=== PATIENT | female | born 1950 | race Caucasian/White ===

== ENCOUNTER 2016-09-13 17:53 | Inpatient (IN) | payer MEDICARE, MEDICAID ==
[~2016-09-13] VITALS: Ht 165.1 cm; Wt 68.1 kg
[~2016-09-13 17:53] MED LIST: ALBU17AE19 IH; ALPR-324 PO; AMLO5TAB4 PO; CLIN300C97 PO; HYDR1TAB70 PO; IPRA0.2S49 IH; LEVO100T PO; MONT10TA22 PO; PRED10TA23 PO; SIMV10TA6 PO; TIOT18CA3 IH; VALS1TAB52 PO
--- NOTE | 2016-09-13 18:08 | NUR ---
BIB SELF, CC: CHEST PAIN AND SOB, WITH HX OF EMPHYSEMA. PLACED ON MONITOR. AWAITING MD ORDER.
--- NOTE | 2016-09-13 18:15 | NUR ---
MEDS GIVEN ORDERED. CALLED RT FOR BREATHING TX
--- NOTE | 2016-09-13 18:15 | NUR ---
RFA #20 IV ACCESS. BLOOD SAMPLE COLLECTED SENT TO LAB.
[2016-09-13 18:26] LABS: BASOPHILS % (AUTO) 0.4 % (0.0-2.0); EOSINOPHILS # (AUTO) 0.4 /CMM (0.0-0.7); EOSINOPHILS % (AUTO) 3.2 % (0.0-6.0); HEMATOCRIT 40 % (33-45); HEMOGLOBIN 13.6 g/dL (11.5-14.8); LYMPHOCYTES # (AUTO) 2.7 /CMM (0.8-4.8); LYMPHOCYTES % (AUTO) 23.9 % (20.0-44.0); MEAN CORPUSCULAR HEMOGLOBIN 28 PG (26.0-33.0); MEAN CORPUSCULAR HGB CONC 34 g/dl (31.0-36.0); MEAN CORPUSCULAR VOLUME 84 fL (82-100); MONOCYTES # (AUTO) 0.6 /CMM (0.1-1.30); MONOCYTES % (AUTO) 5.6 % (2.0-12.0); NEUTROPHILS # (AUTO) 7.7 /CMM (1.8-8.9); NEUTROPHILS % (AUTO) 66.9 % (43.0-81.0); PLATELET COUNT (AUTO) 426 /CMM (150-450); RDW COEFFICIENT OF VARIATION 13.2 (11.5-15.0); RED BLOOD CELL COUNT(AUTO) 4.84 MIL/uL (4.0-5.2); WHITE BLOOD COUNT (AUTO) 11.4 K/uL (4.3-11.0)
[2016-09-13] MEDS ORDERED: ALBUTEROL FS 2.5 MG/3 ML VIAL.NEB NEB ONE (18:30)
[2016-09-13] MEDS ORDERED: IPRATROPIUM NEB FS 0.5 MG/2.5 ML AMPUL.NEB NEB ONE (18:30)
[2016-09-13] MEDS ORDERED: methylPREDNISolone SOD SUCC 125 MG/2ML VIAL IV ONE (18:30)
[2016-09-13] MEDS ORDERED: methylPREDNISolone SOD SUCC 125 MG/2ML VIAL ONE (18:31)
[2016-09-13 18:33] LABS: CALCIUM, SERUM 9.5 mg/dL (8.5-10.1); CREATININE 0.9 mg/dL (0.6-1.3)
[2016-09-13] MEDS ORDERED: IPRATROPIUM NEB FS 0.5 MG/2.5 ML AMPUL.NEB ONE (18:36)
[2016-09-13] MEDS ORDERED: ALBUTEROL FS 2.5 MG/3 ML VIAL.NEB ONE (18:36)
[2016-09-13 18:41] LABS: TROPONIN I 0.021 ng/mL (0.00-0.056)
[2016-09-13 18:46] LABS: ALBUMIN 3.6 g/dL (3.4-5.0); BILIRUBIN,DIRECT 0.1 mg/dL (0.0-0.2); BILIRUBIN,TOTAL 0.1 mg/dL (0.2-1.0); TOTAL PROTEIN, SERUM 6.9 g/dL (6.4-8.2)
--- NOTE | 2016-09-13 18:48 | NUR ---
XRAY AT BEDSIDE
[2016-09-13 19:03] LABS: POTASSIUM 2.8 mmol/L (3.5-5.1)
[2016-09-13] MEDS ORDERED: CHLO25TA2 PO (19:13)
[2016-09-13] MEDS ORDERED: ALPR0.25 PO (19:13)
[2016-09-13] MEDS ORDERED: POTA10TA15 PO (19:13)
[2016-09-13] MEDS ORDERED: LOSA50TA21 PO (19:13)
[2016-09-13] MEDS ORDERED: NIFE30TA91 PO (19:13)
--- NOTE | 2016-09-13 19:33 | NUR ---
PAGED DR TYREE HE.
--- NOTE | 2016-09-13 20:28 | NUR ---
REPORT GIVEN TO ELENO MONTERO
--- NOTE | 2016-09-13 20:36 | NUR ---
REPAGED YING QURESHI
[2016-09-13 21:08] VITALS: BP 168/99
--- NOTE | 2016-09-13 21:08 | NUR ---
RN NOTES ADMITTED A 66 YRS OLD, FEMALE PT FROM ER WITH PRIMARY DIAGNOSIS OF COPD EXACERBATION UNDER DR CLEMENTS. PT ALERT AND ORIENTED X4, NO SOB, NOT IN DISTRESS, BREATHING REGULAR AND UNLABORED, SOME RONCHI HEARD UPON AUSCULTATION. PT STILL COMPLAINING OF TOLERABLE CHEST PAIN 08/13. ATTACHED TO TELEMONITOR WHICH READS SINUS RHYTHM AT 87. ON O2 INHALATION AT 2LPM VIA NC AND TOLERATED WELL. IV ACCESS ON RIGHT FORE ARM PATENT AND INTACT. SKIN CLEAR AND INTACT. PT IS AMBULATORY WITH STEADY GAIT. KEPT COMFORTABLE AND ATTENDED. ALL ORDERS NOTED AND CARRIED OUT. WILL CONTINUE TO MONITOR PT.
[2016-09-13] MEDS ORDERED: HYDROCODONE/APAP 5/325MG 1 EACH TABLET PO PRN (22:30)
[2016-09-13] MEDS ORDERED: ONDANSETRON HCL/PF 4 MG/2 ML VIAL IV PRN (22:30)
[2016-09-13] MEDS ORDERED: ENOXAPARIN SODIUM 40 MG/0.4 ML DISP.SYRIN SQ SCH (22:30)
[2016-09-13] MEDS ORDERED: POTASSIUM CHLORIDE 20 MEQ TAB.PRT.SR PO ONE ×2 (22:30→23:00)
[2016-09-13] MEDS ORDERED: LEVOFLOXACIN 500 MG /D5W 100ML 500 MG in PREMIX 1 EA IV SCH (22:30)
[2016-09-13] MEDS ORDERED: ALBUTEROL FS 2.5 MG/3 ML VIAL.NEB NEB PRN (23:00)
[2016-09-13] MEDS ORDERED: ENOXAPARIN SODIUM 40 MG/0.4 ML DISP.SYRIN SQ ONE (23:01)
[2016-09-13] MEDS ORDERED: IV PREMIX 0.45% NS + KCL 1,000 ML IV ONE (23:04)
[2016-09-13] MEDS ORDERED: LEVOFLOXACIN 500 MG /D5W 100ML 100 ML IV ONE (23:04)
[2016-09-13] MEDS ORDERED: IV SET PRIMARY PUMP SET 1 EA INFUS.SET MC ONE (23:06)
[2016-09-13] MEDS ORDERED: SECONDARY IV SET 1 EA INFUS.SET MC ONE (23:07)
[2016-09-13] MEDS ORDERED: methylPREDNISolone SOD SUCC 40 MG/ML VIAL ONE (23:46)
[2016-09-13] MEDS: methylPREDNISolone SOD SUCC 40 MG/ML VIAL IV SCH (23:50)
[2016-09-14] VITALS (8 sets, daily range): BP systolic 112–185; BP diastolic 80–101
[2016-09-14] MEDS ORDERED: IPRATROPIUM NEB FS 0.5 MG/2.5 ML AMPUL.NEB NEB PRN (01:30)
[2016-09-14] MEDS ORDERED: IPRATROPIUM NEB FS 0.5 MG/2.5 ML AMPUL.NEB ONE (01:33)
[2016-09-14] MEDS ORDERED: ALBUTEROL FS 2.5 MG/3 ML VIAL.NEB ONE (01:33)
[2016-09-14] MEDS: ALBUTEROL FS 2.5 MG/3 ML VIAL.NEB NEB SCH ×4 (01:43→20:25)
[2016-09-14] MEDS: IPRATROPIUM NEB FS 0.5 MG/2.5 ML AMPUL.NEB NEB SCH ×4 (01:43→20:24)
[2016-09-14] MEDS ORDERED: methylPREDNISolone SOD SUCC 40 MG/ML VIAL ONE (05:38)
[2016-09-14] MEDS: methylPREDNISolone SOD SUCC 40 MG/ML VIAL IV SCH (05:44)
--- NOTE | 2016-09-14 06:38 | NUR ---
RN NOTES PT ASLEEP IN BED, HOB ELEVATED, NO SOB, NOT IN DISTRESS, TOLERATING O2 INHALATION AT 2LPM VIA NC. AFEBRILE, NO COMPLAIN OF PAIN, NO EPISODE NAUSEA AND VOMITING. ALL DUE MEDS GIVEN. ALL NEEDS ATTENDED. WILL ENDORSE TO MORNING RN FOR CONTINUITY OF CARE.
--- NOTE | 2016-09-14 07:30 | NUR ---
PLASTIC MOLDING OPERATOR AM NOTES PT IN BED, AAO X 4, ON 02 AT 2L NC, ON AND OFF, NO SOB, NOT IN DISTRESS, BREATHING REGULAR AND UNLABORED, HARSH BREATH SOUNDS, TELEMETRY READS SR HR 78, DENIES ANY PAIN/DISCOMFORT. IV ACCESS ON RIGHT FORE ARM 20G WITH 1/2 NS + 20MEQ KCL INFUSING WELL. SITE CLEAR. PT IS AMBULATORY WITH STEADY GAIT. PLAN OF CARE DISCUSSED WITH HER, SAFETY MEASURES IN PLACE, CALL LIGHT WITHIN REACH, WILL CONTINUE TO MONITOR.
[2016-09-14 07:49] LABS: BASOPHILS % (AUTO) 0.1 % (0.0-2.0); HEMATOCRIT 42 % (33-45); HEMOGLOBIN 13.8 g/dL (11.5-14.8); LYMPHOCYTES # (AUTO) 0.9 /CMM (0.8-4.8); LYMPHOCYTES % (AUTO) 9.3 % (20.0-44.0); MEAN CORPUSCULAR HEMOGLOBIN 28 PG (26.0-33.0); MEAN CORPUSCULAR HGB CONC 33 g/dl (31.0-36.0); MEAN CORPUSCULAR VOLUME 84 fL (82-100); MONOCYTES % (AUTO) 0.4 % (2.0-12.0); NEUTROPHILS # (AUTO) 8.6 /CMM (1.8-8.9); NEUTROPHILS % (AUTO) 90.2 % (43.0-81.0); PLATELET COUNT (AUTO) 418 /CMM (150-450); RDW COEFFICIENT OF VARIATION 14.8 (11.5-15.0); RED BLOOD CELL COUNT(AUTO) 4.94 MIL/uL (4.0-5.2); WHITE BLOOD COUNT (AUTO) 9.6 K/uL (4.3-11.0)
[2016-09-14 07:54] LABS: CALCIUM, SERUM 9.7 mg/dL (8.5-10.1); CREATININE 0.8 mg/dL (0.6-1.3); POTASSIUM 3.6 mmol/L (3.5-5.1)
--- NOTE | 2016-09-14 09:30 | NUR ---
MS RN NOTES DR. CLEMENTS AT BEDSIDE EARLIER.
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
--- NOTE | 2016-09-14 12:01 | NUR ---
CLINICAL BUSINESS ANALYST NOTES [facility] - DR. CONKLIN TO TAKEOVER PATIENT'S CARE. PATIENT NO LONGER UNDER [employer]. DR. CLEMENTS NOTIFIED.
--- NOTE | 2016-09-14 15:11 | NUR ---
MEMBER OF THE LEGISLATIVE ASSEMBLY NOTES PATIENT WENT DOWN TO SMOKE WITH SON DESPITE EXPLAINING TO HER THE RISK AND HER OXYGEN SATURATION IS LOW. BUT PATIENT STILL INSISTED, AND CONSENT FOR SMOKING SIGNED.
--- NOTE | 2016-09-14 16:40 | NUR ---
DESTINATION IMAGINATION COORDINATOR NOTES DR. COLIN NOTIFIED OF BP 157/101. MED RECONCILED. WILL GIVE APRESOLINE 10MG
[2016-09-14] MEDS: hydrALAZINE HCL 10 MG TABLET PO PRN (16:46)
--- NOTE | 2016-09-14 17:10 | NUR ---
ZOO VETERINARIAN NOTES BP RE CHECKED 150/90
--- NOTE | 2016-09-14 18:37 | NUR ---
SOLUTIONS MARKET CONSULTANT CLOSING NOTES PT RESTING IN BED, AAO X 4, ON 02 AT 2L NC, ON AND OFF, NO SOB, NOT IN DISTRESS, BREATHING REGULAR AND UNLABORED, HARSH BREATH SOUNDS, TELEMETRY READS SR HR 80, DENIES ANY PAIN/DISCOMFORT. IV ACCESS ON RIGHT FORE ARM 20G FLUSHES WELL, SITE CLEAR, PT IS AMBULATORY WITH STEADY GAIT. MED RECON DONE BY DR. COLIN EARLIER. SAFETY MEASURES IN PLACE, CALL LIGHT WITHIN REACH, ALL NEEDS MET, WILL ENDORSE TO NEXT SHIFT FOR IZABELLA.
--- NOTE | 2016-09-14 20:00 | NUR ---
RN NOTES RECEIVED PX AWAKE, ALERT, ORIENTED X 3, MOVING INDEPENDENTLY IN BED; ABLE TO WALK TO THE BATHROOM WITH STEADY GAIT; ON NC DECREASED TO 2 LPM, SATURATING 92%; DENIED PAIN, SOB, N/V; PIV PATENT AND INTACT; DISCUSSED PLAN OF CARE; ENCOURAGED TO KEEP HOB AT 30 ANGLE, DISCUSSED SMOKING CESSATION.
[2016-09-14] MEDS: LEVOFLOXACIN 250 MG /D5W 50 ML 250 MG in PREMIX 1 EA IV SCH (20:19)
[2016-09-14] MEDS: ACETAMINOPHEN 325 MG TABLET PO PRN (20:19)
[2016-09-14] MEDS: ENOXAPARIN SODIUM 40 MG/0.4 ML DISP.SYRIN SQ SCH (20:21)
[2016-09-14] MEDS ORDERED: hydrALAZINE HCL 10 MG TABLET PO ONE (21:00)
--- NOTE | 2016-09-14 21:00 | NUR ---
RN NOTES INFORMED FLO PATEL RE: BP 174/96, INFORMED PX IS ASYMPTOMATIC, NO CHEST PAIN, DIZZINESS, SOB; NEW ORDER MADE; HYDRALAZINE 10 MG PO GIVEN EARLIER.
[2016-09-15] VITALS (10 sets, daily range): BP systolic 130–172; BP diastolic 76–100
--- NOTE | 2016-09-15 00:02 | NUR ---
RN NOTES CONDITION AND NEURO STATUS UNCHANGED; DENIED CHEST PAIN, SOB, DIZZINESS, HEADACHE.
[2016-09-15] MEDS: IPRATROPIUM NEB FS 0.5 MG/2.5 ML AMPUL.NEB NEB SCH ×4 (00:50→20:15)
[2016-09-15] MEDS: ALBUTEROL FS 2.5 MG/3 ML VIAL.NEB NEB SCH ×4 (00:50→20:15)
[2016-09-15] MEDS: hydrALAZINE HCL 10 MG TABLET PO PRN ×2 (04:33→10:45)
--- NOTE | 2016-09-15 06:16 | NUR ---
RN CLOSING PX CONDITION AND NEURO STATUS UNCHANGED; CONTINUED ON O2; DENIED PAIN, SOB, N/V; PIV PATENT AND INTACT; ON DVT PUMPS; EARLY AM CARE RENDERED; SKIN REMAINED INTACT; WILL ENDORSE TO NEXT RN; WEIGHT IS 149 LBS, BED WAS ZEROED TO DOUBLE CHECK. WILL ENDORSE TO NEXT RN.
--- NOTE | 2016-09-15 07:30 | NUR ---
SLITTER SCORER AM NOTES PT IN BED, AAO X 4, ON 02 AT 2L NC, ON AND OFF, NO SOB, NOT IN DISTRESS, BREATHING REGULAR AND UNLABORED, HARSH BREATH SOUNDS, TELEMETRY READS SR HR 62, DENIES ANY PAIN/DISCOMFORT. IV ACCESS ON RIGHT FORE ARM 20G FLUSHES WELL SITE, SITE CLEAR. PT IS AMBULATORY WITH STEADY GAIT. PLAN OF CARE DISCUSSED WITH HER, SAFETY MEASURES IN PLACE, CALL LIGHT WITHIN REACH, WILL CONTINUE TO MONITOR.
--- NOTE | 2016-09-15 08:00 | NUR ---
MS RN NOTES PT'S BP 157/100. WILL GIVE AM MEDS.
[2016-09-15] MEDS: HYDROCHLOROTHIAZIDE 25 MG TABLET PO SCH (08:44)
[2016-09-15] MEDS: NIFEdipine XL (30MG) 30 MG TAB PO SCH (08:45)
[2016-09-15] MEDS: LOSARTAN POTASSIUM 50 MG TABLET PO SCH (08:45)
[2016-09-15] MEDS: POTASSIUM CHLORIDE 10 MEQ TABLET.SA PO SCH (08:45)
[2016-09-15] MEDS: ALPRAZOLAM 0.25 MG TABLET PO SCH (08:49)
[2016-09-15] MEDS ORDERED: Chlorthalidone 25 MG PO SCH (09:00)
--- NOTE | 2016-09-15 09:30 | NUR ---
MS RN NOTES ADMINISTERED DUE MEDS.
--- NOTE | 2016-09-15 09:55 | NUR ---
ASSISTANT OFFICE MANAGER NOTES BP RECHECKED 172/91
[2016-09-15 10:49] LABS: ABG BASE EXCESS 5.3 mmol/L; ABG OXYGEN SATURATION 86.3 % (92.0-98.5); ABG PCO2 43.6 mmHg (35.0-45.0); ABG PH 7.454 (7.350-7.450); ABG PO2 49.5 mmHg (75.0-100.0); ABG TOTAL HEMOGLOBIN 13.8 G/dL (12.0-16.0); COHb 0.9 % (0.5-1.5); MetHb 0.5 % (0.0-1.5); O2Hb 85.1 % (94.0-97.0); SITE, ABG Right Radial; VENT MODE, BG NASAL CANNULA
--- NOTE | 2016-09-15 11:36 | NUR ---
MS RN NOTES BP RECHECKED. 140/98.
[2016-09-15] MEDS ORDERED: FIXODENT 1 EA TUBE MM ONE (17:30)
--- NOTE | 2016-09-15 19:30 | NUR ---
SYSTEM SPECIALIST CLOSING NOTES PT RESTING IN BED, AAO X 4, ON 02 AT 2L NC, ON AND OFF, NO SOB, NOT IN DISTRESS, BREATHING REGULAR AND UNLABORED, HARSH BREATH SOUNDS, TELEMETRY READS SR HR 80s, DENIES ANY PAIN/DISCOMFORT. IV ACCESS ON RIGHT FORE ARM 20G FLUSHES WELL, SITE CLEAR, PT IS AMBULATORY WITH STEADY GAIT. SAFETY MEASURES IN PLACE, CALL LIGHT WITHIN REACH, ALL NEEDS MET, WILL ENDORSE TO NEXT SHIFT FOR IZABELLA.
--- NOTE | 2016-09-15 19:30 | NUR ---
FACULTY MEMBER NOTE PT IN BED, AAO X 4, ON 02 AT 2L NC, ON AND OFF, NO SOB, NOT IN DISTRESS, BREATHING REGULAR AND UNLABORED, TELEMETRY READS SR HR 62, DENIES ANY PAIN/DISCOMFORT. IV ACCESS ON RIGHT FORE ARM 20G FLUSHES WELL SITE, SITE CLEAR. PT IS AMBULATORY WITH STEADY GAIT. SAFETY MEASURES IN PLACE, CALL LIGHT WITHIN REACH, WILL CONTINUE TO MONITOR.
[2016-09-15] MEDS: LEVOFLOXACIN 250 MG /D5W 50 ML 250 MG in PREMIX 1 EA IV SCH (20:31)
[2016-09-15] MEDS: ENOXAPARIN SODIUM 40 MG/0.4 ML DISP.SYRIN SQ SCH (20:32)
--- NOTE | 2016-09-15 22:00 | NUR ---
DOPE MAINTENANCE WORKER NOTE PATIENT REPORTED THAT HER ARM IS VERY ITCHY AFTER HER LEVAQUIN BEGAN INFUSING. INFUSION STOPPED, FLO PATEL NOTIFIED WITH NEW ORDERS FOR BENADRYL 50MG IV Q6H PRN FOR ITCHING, AND TO DISCONTINUE LEVAQUIN AND BEGIN ZITHROMAX 250MG DAILY X 5 DAYS. EXPLAINED TO PATIENT. PATIENT VERBALIZED UNDERSTANDING. WILL CONTINUE TO MONITOR.
[2016-09-15] MEDS ORDERED: diphenhydrAMINE HCL 50 MG/ML VIAL ONE (22:10)
[2016-09-15] MEDS ORDERED: diphenhydrAMINE HCL 50 MG/ML VIAL IV PRN (22:30)
--- NOTE | 2016-09-15 22:45 | NUR ---
CYBER POLICY AND STRATEGY PLANNER NOTE PATIENT STATES THAT SHE IS NO LONGERT ITCHING. WILL CONTINUE TO MONITOR.
[2016-09-16] VITALS: BP 140/90
[2016-09-16] MEDS: IPRATROPIUM NEB FS 0.5 MG/2.5 ML AMPUL.NEB NEB SCH ×3 (00:56→12:54)
[2016-09-16] MEDS: ALBUTEROL FS 2.5 MG/3 ML VIAL.NEB NEB SCH ×3 (00:56→12:54)
[2016-09-16 04:00] VITALS: BP 144/90
--- NOTE | 2016-09-16 06:22 | NUR ---
FILTER TANK OPERATOR NOTE PATIENT STABLE. ALL NEEDS MET AND ATTENDED TO. WILL ENDORSE TO DAY SHIFT FOR IZABELLA.
--- NOTE | 2016-09-16 07:07 | NUR ---
TELE/RN AM NOTES RECEIVED PATINE IN BED, AWAKE, ALERT, WITHOUT SOB, NO CHEST PAIN, HOB ELEVATED 35 DEGREE. RESTING COMFORTABLY, ON RA TOLERATING WELL. IV LINE ON RIGHT WRIST INTACT, PATENT, NEEDS MET, WITH CALL LIGHT WITHIN EASY REACH. WILL CONTINUE TO MONITOR ACCORDINGLY.
[2016-09-16 08:00] VITALS: BP_SYST 132; BP_SYST 135; BP_DIAS 64; BP_DIAS 98
[2016-09-16] MEDS ORDERED: AZITHROMYCIN 250 MG TABLET PO SCH (09:00)
[2016-09-16] MEDS: POTASSIUM CHLORIDE 10 MEQ TABLET.SA PO SCH (09:07)
[2016-09-16] MEDS: ALPRAZOLAM 0.25 MG TABLET PO SCH (09:09)
[2016-09-16] MEDS: LOSARTAN POTASSIUM 50 MG TABLET PO SCH (09:09)
[2016-09-16] MEDS: NIFEdipine XL (30MG) 30 MG TAB PO SCH (09:09)
[2016-09-16] MEDS: HYDROCHLOROTHIAZIDE 25 MG TABLET PO SCH (09:09)
[2016-09-16] MEDS: ACETAMINOPHEN 325 MG TABLET PO PRN (15:27)
[2016-09-16 16:00] VITALS: BP 150/93
--- NOTE | 2016-09-16 17:15 | NUR ---
MS/RN D/C NOTES DISCHARGED PATIENT HOME IN STABLE CONDITION WITH SON, NO SOB, DENIES CHEST PAIN OXYGEN SATURATION 92% RA, TOLERATING WELL. DISCHARGE CARE INSTRUCTION GIVEN, VERBALIZED UNDERSTANDING, ENCOURAGED TO F/U WITH PRIMARY PHYSICIAN WITHIN A WEEK. LEFT WITH ALL HER BELONGINGS, PRESCRIPTIONS FOR BREATHING TX AND ANTIBIOTIC, PORTABLE OXYGEN TANK WITH N/C PER DOCTOR'S ORDER, TEACHING PROVIDED ABOUT OXYGEN USE, AND CAUTIONS WITH SMOKING
== END 2016-09-16 17:10 | disposition home health service (06) | DRG 190 ==
LOC: ER 17:54 → TELE 19:49 → MED 09-16 08:54
PROVIDERS: ADMIT Internal Medicine; ATTEND Internal Medicine
DX: J44.1 Chronic obstructive pulmonary disease with (acute) exacerbation (principal); J96.01 Acute respiratory failure with hypoxia; I10 Essential (primary) hypertension; J45.909 Unspecified asthma, uncomplicated; G47.419 Narcolepsy without cataplexy; M41.9 Scoliosis, unspecified; G47.33 Obstructive sleep apnea (adult) (pediatric); M47.814 Spondylosis without myelopathy or radiculopathy, thoracic region; E87.6 Hypokalemia; E03.9 Hypothyroidism, unspecified; Z59.0 Homelessness; F17.210 Nicotine dependence, cigarettes, uncomplicated; E78.5 Hyperlipidemia, unspecified; Z91.19 Patient's noncompliance with other medical treatment and regimen
CPT/HCPCS: 36415; 36600; 71010-TC; 80048-TC; 80076-TC; 83880; 84484-TC; 85025-TC; 87081-TC; 94799-TC; A4216; A4606; J1200; J1650; J1956; J2920; J2930; J3480; J3490; Z7610

== ENCOUNTER 2016-11-21 14:19 | Inpatient (IN) | payer MEDICARE, OTHER ==
[~2016-11-21] VITALS: Ht 172.7 cm; Wt 72.6 kg
[~2016-11-21 14:19] MED LIST changes: -ALBU17AE19 IH; -ALPR-324 PO; +ALPR0.25 PO; -AMLO5TAB4 PO; +CHLO25TA2 PO; -CLIN300C97 PO; -HYDR1TAB70 PO; -IPRA0.2S49 IH; -LEVO100T PO; +LOSA50TA21 PO; -MONT10TA22 PO; +NIFE30TA91 PO; +POTA10TA15 PO; -PRED10TA23 PO; -SIMV10TA6 PO; -TIOT18CA3 IH; -VALS1TAB52 PO
--- NOTE | 2016-11-21 14:30 | NUR ---
aaoxe, bib self, cc: chest pain, cough and congestion, and states she is homeles now and can't be on oxygen as ordered. Resp is even and unlabored with nad noted. skin is warm and dry. Placed on monitor. Awaiting MD for eval.
[2016-11-21] MEDS ORDERED: HYDROCODONE/APAP 5/325MG 1 EACH TABLET ONE (14:34)
[2016-11-21] MEDS ORDERED: CYCLOBENZAPRINE 10 MG TABLET ONE (14:34)
[2016-11-21] MEDS ORDERED: ONDANSETRON 4 MG TAB.RAPDIS ONE (14:34)
--- NOTE | 2016-11-21 14:45 | NUR ---
RFA #18 IV ACCESS. BLOOD SAMPLE COLLECTED SENT TO LAB
[2016-11-21] MEDS ORDERED: methylPREDNISolone SOD SUCC 125 MG/2ML VIAL ONE (14:50)
[2016-11-21] MEDS ORDERED: ONDANSETRON HCL/PF 4 MG/2 ML VIAL ONE (14:50)
[2016-11-21 14:58] LABS: BASOPHILS # (AUTO) 0.1 /CMM (0.0-0.2); BASOPHILS % (AUTO) 0.7 % (0.0-2.0); EOSINOPHILS # (AUTO) 0.8 /CMM (0.0-0.7); EOSINOPHILS % (AUTO) 7.3 % (0.0-6.0); HEMATOCRIT 42 % (33-45); HEMOGLOBIN 13.9 g/dL (11.5-14.8); LYMPHOCYTES # (AUTO) 2.5 /CMM (0.8-4.8); LYMPHOCYTES % (AUTO) 22.6 % (20.0-44.0); MEAN CORPUSCULAR HEMOGLOBIN 28 PG (26.0-33.0); MEAN CORPUSCULAR HGB CONC 33 g/dl (31.0-36.0); MEAN CORPUSCULAR VOLUME 86 fL (82-100); MONOCYTES # (AUTO) 0.7 /CMM (0.1-1.30); NEUTROPHILS % (AUTO) 63.4 % (43.0-81.0); PLATELET COUNT (AUTO) 416 /CMM (150-450); RDW COEFFICIENT OF VARIATION 13.4 (11.5-15.0); WHITE BLOOD COUNT (AUTO) 11.1 K/uL (4.3-11.0)
[2016-11-21] MEDS ORDERED: HYDROCODONE/APAP 5/325MG 1 EACH TABLET PO ONE (15:00)
[2016-11-21] MEDS ORDERED: ALBUTEROL FS 2.5 MG/3 ML VIAL.NEB CONTNEB ONE (15:00)
[2016-11-21] MEDS ORDERED: ONDANSETRON HCL/PF 4 MG/2 ML VIAL IVP ONE (15:00)
[2016-11-21] MEDS ORDERED: IPRATROPIUM NEB FS 0.5 MG/2.5 ML AMPUL.NEB NEB ONE (15:00)
[2016-11-21] MEDS ORDERED: methylPREDNISolone SOD SUCC 125 MG/2ML VIAL IV ONE (15:00)
[2016-11-21 15:03] LABS: CALCIUM, SERUM 9.6 mg/dL (8.5-10.1); CARBON DIOXIDE 32 mmol/L (21-32); CHLORIDE 106 mmol/L (98-107); GLUCOSE 172 mg/dL (74-106); POTASSIUM 2.9 mmol/L (3.5-5.1); SODIUM SERUM 145 mmol/L (136-145); UREA NITROGEN, BLOOD 16 mg/dL (7-18)
[2016-11-21] MEDS ORDERED: ALBUTEROL FS 2.5 MG/3 ML VIAL.NEB ONE (15:06)
[2016-11-21] MEDS ORDERED: IPRATROPIUM NEB FS 0.5 MG/2.5 ML AMPUL.NEB ONE (15:06)
[2016-11-21 15:09] LABS: ALANINE AMINOTRANSFERASE 19 U/L (12-78); ALBUMIN 3.8 g/dL (3.4-5.0); ALKALINE PHOSPHATASE 66 U/L (46-116); ASPARTATE AMINOTRANSFERASE 16 U/L (15-37); BILIRUBIN,DIRECT 0.1 mg/dL (0.0-0.2); BILIRUBIN,TOTAL 0.5 mg/dL (0.2-1.0)
[2016-11-21 15:11] LABS: TROPONIN I < 0.017 ng/mL (0.00-0.056)
[2016-11-21] MEDS ORDERED: POTASSIUM CHLORIDE 20 MEQ TAB.PRT.SR PO ONE ×2 (16:10→16:30)
--- NOTE | 2016-11-21 16:14 | NUR ---
PAGED DR CALDERON SPORTS EQUIPMENT RACKER FOR PANEL
[2016-11-21] MEDS ORDERED: Magnesium 1GM/D5W 100ML PREMIX PIGGYBACK IV ONE (16:30)
--- NOTE | 2016-11-21 16:34 | NUR ---
GAVE REPORT TO ALICIA JACKSON TO [facility] 309-1 DR CALDERON ADMITTING. DX COPD EXACERBATION.
[2016-11-21] MEDS ORDERED: IV SET PRIMARY 1 EA INFUS.SET MC ONE (16:35)
[2016-11-21] MEDS ORDERED: Magnesium 1GM/D5W 100ML PREMIX 200 ML IV ONE (16:35)
--- NOTE | 2016-11-21 17:06 | NUR ---
REPAGED DR CALDERON
[2016-11-21] MEDS ORDERED: MAG HYDROX/AL HYDROX/SIMETH 30 ML UDC PO PRN (17:30)
[2016-11-21] MEDS ORDERED: ALBUTEROL FS 2.5 MG/3 ML VIAL.NEB NEB PRN (17:30)
[2016-11-21] MEDS ORDERED: MAGNESIUM HYDROXIDE 30 ML UDC PO PRN (17:30)
[2016-11-21] MEDS ORDERED: Z GUARD REMEDY 2 OZ OINT TP PRN (17:30)
[2016-11-21] MEDS ORDERED: HYDROCODONE/APAP 5/325MG 1 EACH TABLET PO PRN (17:30)
[2016-11-21] MEDS ORDERED: ACETAMINOPHEN 325 MG TABLET PO PRN (17:30)
[2016-11-21] MEDS ORDERED: ZOLPIDEM TARTRATE 5 MG TABLET PO PRN (17:30)
[2016-11-21] MEDS ORDERED: ONDANSETRON HCL/PF 4 MG/2 ML VIAL IVP PRN (17:30)
--- NOTE | 2016-11-21 17:38 | NUR ---
MS RN NOTES RECEIVED PT. FROM ER STAFF NURSE IN STABLE CONDITION. PT. DENIES PAIN AT THIS TIME. NO SOB OR SIGNS OF DISTRESS NOTED. BREATHING IS EVEN AND UNLABORED. ON 2L O2 VIA NC SATING @ 91%. PT. WAS ORIENTED TO HER ROOM AND VERBALIZED UNDERSTANDING. BED IN LOW LOCKED POSITION, SIDE RAILS UP X2, CALL LIGHT WITHIN REACH. WILL BEGIN ADMISSION PROCESS AND AWAIT FURTHER ORDERS FROM THE MD.
[2016-11-21] MEDS: ENOXAPARIN SODIUM 40 MG/0.4 ML DISP.SYRIN SQ SCH (18:02)
[2016-11-21 18:35] VITALS: BP 144/71
--- NOTE | 2016-11-21 18:47 | NUR ---
MS RN CLOSING NOTES PT. IN STABLE CONDITION. ALL ORDERS CARRIED OUT ACCORDINGLY AND PT. NEEDS ANTICIPATED AND CARED FOR. NO ACUTE CHANGES IN CONDITION FROM TIME OF ARRIVAL. ALL SAFETY MEASURES IN PLACE. WILL ENDORSE TO NIGHTSHIFT NURSE FOR IZABELLA
--- NOTE | 2016-11-21 19:40 | NUR ---
RN OPENING NOTES RECEIVED REPORT FROM DAYSHIFT RNALICIA. FOUND Pt ASLEEP IN BED, WITH EQUAL CHEST RISE AND FALL. NO S/S OF ACUTE DISTRESS OR SOB NOTED. NO SIGNS OF PAIN NOTED. IV ACCESS RFA #18G, SL. SAFETY MEASURES IN PLACE. BED LOW, LOCKED, HOB ELEVATED, & SIDE RAILS UP. WILL CONTINUE TO MONITOR Pt THROUGHOUT THE NIGHT FOR SAFETY.
[2016-11-21 20:00] VITALS: BP 137/78
[2016-11-21 21:00] VITALS: BP 137/78
[2016-11-22 06:40] LABS: BASOPHILS % (AUTO) 0.1 % (0.0-2.0); EOSINOPHILS % (AUTO) 0.1 % (0.0-6.0); HEMATOCRIT 42 % (33-45); LYMPHOCYTES # (AUTO) 1.3 /CMM (0.8-4.8); LYMPHOCYTES % (AUTO) 16.9 % (20.0-44.0); MEAN CORPUSCULAR HEMOGLOBIN 30 PG (26.0-33.0); MEAN CORPUSCULAR HGB CONC 34 g/dl (31.0-36.0); MEAN CORPUSCULAR VOLUME 88 fL (82-100); MONOCYTES # (AUTO) 0.3 /CMM (0.1-1.30); MONOCYTES % (AUTO) 4.3 % (2.0-12.0); NEUTROPHILS # (AUTO) 5.9 /CMM (1.8-8.9); NEUTROPHILS % (AUTO) 78.6 % (43.0-81.0); PLATELET COUNT (AUTO) 376 /CMM (150-450); RDW COEFFICIENT OF VARIATION 14.7 (11.5-15.0); RED BLOOD CELL COUNT(AUTO) 4.73 MIL/uL (4.0-5.2); WHITE BLOOD COUNT (AUTO) 7.5 K/uL (4.3-11.0)
--- NOTE | 2016-11-22 06:40 | NUR ---
RN CLOSING NOTES NO SIGNIFICANT CHANGES DURING THE NIGHT. NO S/S OF ACUTE DISTRESS OR SOB NOTED. ALL NEEDS MET AND ATTENDED TO. SAFETY MEASURES CARRIED OUT. WILL ENDORSE TO DAYSHIFT RN FOR Pt's IZABELLA.
[2016-11-22 06:57] LABS: CALCIUM, SERUM 9.8 mg/dL (8.5-10.1); CREATININE 0.8 mg/dL (0.6-1.3); MAGNESIUM 2.1 mg/dL (1.8-2.4); PHOSPHORUS 4.2 mg/dL (2.5-4.9); POTASSIUM 4.3 mmol/L (3.5-5.1)
--- NOTE | 2016-11-22 07:30 | NUR ---
PATIENT RECEIVED RESTING COMFORTABLY IN BED. NO S/S OR C/O PAIN OR DISTRESS NOTED. SIDE RAILS UP X2, CALL LIGHT LEFT WITHIN REACH. WILL CONTINUE PLAN OF CARE.
[2016-11-22 08:00] VITALS: BP 175/95
[2016-11-22] MEDS: PANTOPRAZOLE 40 MG TABLET.DR PO SCH (09:47)
[2016-11-22] MEDS: NIFEdipine XL 60 MG TAB PO SCH (09:48)
--- NOTE | 2016-11-22 12:11 | NUR ---
Social service consult requested by Peewee Cloud for possible homelessness. Pt. was admitted to [facility] for COPD Exacerbation. DONNIE is familiar with pt. from a previous admission on 09/16/16. Pt. is a 66 years old female who is a heavy smoker and is currently homeless. DONNIE met with pt. bedsides. Pt. is alert and oriented x 4. Pt. appeared well-groomed. Pt. was friendly and cooperative with SW during the assessment. Pt. was living temporarily with her son Devonte Mckeon at his friend Tej's house located at [address] [place] [address], [address] in [facility]. Pt. stated she does not ave any more funds to pay for a motel at this time. Pt. is requesting to go to a longterm facility. Pt. currently receives approximately $700 in Social Security income per month. Pt. states she feels sad because she had to give her three cats to the half-way since she had no place to live permanently. Pt. denies suicidal/homicidal ideations and visual/auditory hallucinations at this time. Pt. smokes one pack of cigarettes per day and drinks alcohol occasionally. Pt. denies any drug use. Pt. is requesting no other social needs at this time and social worker psychiatric will re-assess if necessary. DONNIE updated returned case inspector Reina regarding pt. wanting longterm facility placement.
[2016-11-22 16:00] VITALS: BP 149/90
--- NOTE | 2016-11-22 18:49 | NUR ---
CHANGE OF SHIFT REPORT PT RESTING COMFORTABLY IN BED. NO S/S OR C/O PAIN OR DISTRESS NOTED. SIDE RAILS UP X2, CALL LIGHT LEFT WITHIN REACH. PT KEPT CLEAN, DRY, AND COMFORTABLE. NO SIGNIFICANT CHANGES SINCE PREVIOUS SHIFT. WILL GIVE REPORT TO MOOSE JACKSON.
--- NOTE | 2016-11-22 19:20 | NUR ---
RN OPEN NOTES RECEIVED PATIENT AWAKE IN BED. A/O X3. NO SIGNS OF DISTRESS OR DISCOMFORT. BREATHING EVEN AND UNLABORED. ON 2LPM O2 VIA NC. IV ACCESS RFA, PATENT AND INTACT, NO SIGNS OF REDNESS OR INFILTRATION. BED IN LOW LOCKED POSITION WITH SIDE RAILS X2. CALL LIGHT WITHIN REACH. WILL CONTINUE TO MONITOR.
[2016-11-22 20:00] VITALS: BP 144/85
[2016-11-22] MEDS: ENOXAPARIN SODIUM 40 MG/0.4 ML DISP.SYRIN SQ SCH (20:39)
--- NOTE | 2016-11-23 06:37 | NUR ---
RN CLOSING NOTES PATIENT AWAKE IN BED. A/O X3. NO SIGNS OF DISTRESS OR DISCOMFORT. BREATHING EVEN AND UNLABORED. ON 2LPM O2 VIA NC. IV ACCESS RFA, PATENT AND INTACT, NO SIGNS OF REDNESS OR INFILTRATION. NO SIGNIFICANT CHANGES THROUGH THE NIGHT. ALL NEEDS MET. BED IN LOW LOCKED POSITION WITH SIDE RAILS X2. CALL LIGHT WITHIN REACH. WILL ENDORSE TO AM SHIFT FOR IZABELLA.
[2016-11-23 07:02] LABS: BASOPHILS % (AUTO) 0.4 % (0.0-2.0); EOSINOPHILS # (AUTO) 0.3 /CMM (0.0-0.7); EOSINOPHILS % (AUTO) 2.5 % (0.0-6.0); HEMATOCRIT 40 % (33-45); HEMOGLOBIN 13.4 g/dL (11.5-14.8); LYMPHOCYTES # (AUTO) 3.4 /CMM (0.8-4.8); LYMPHOCYTES % (AUTO) 31.4 % (20.0-44.0); MEAN CORPUSCULAR HEMOGLOBIN 30 PG (26.0-33.0); MEAN CORPUSCULAR HGB CONC 34 g/dl (31.0-36.0); MEAN CORPUSCULAR VOLUME 87 fL (82-100); MONOCYTES # (AUTO) 0.7 /CMM (0.1-1.30); MONOCYTES % (AUTO) 6.6 % (2.0-12.0); NEUTROPHILS # (AUTO) 6.3 /CMM (1.8-8.9); NEUTROPHILS % (AUTO) 59.1 % (43.0-81.0); PLATELET COUNT (AUTO) 370 /CMM (150-450); RDW COEFFICIENT OF VARIATION 14.8 (11.5-15.0); RED BLOOD CELL COUNT(AUTO) 4.52 MIL/uL (4.0-5.2); WHITE BLOOD COUNT (AUTO) 10.7 K/uL (4.3-11.0)
[2016-11-23 07:27] LABS: CALCIUM, SERUM 8.6 mg/dL (8.5-10.1); CREATININE 0.7 mg/dL (0.6-1.3); MAGNESIUM 1.6 mg/dL (1.8-2.4); POTASSIUM 3.3 mmol/L (3.5-5.1)
--- NOTE | 2016-11-23 07:30 | NUR ---
PATIENT RECEIVED RESTING COMFORTABLY IN BED WITH EYES CLOSED. NO S/S OR C/O PAIN OR DISTRESS NOTED. SIDE RAILS UP X2, CALL LIGHT LEFT WITHIN REACH. WILL CONTINUE PLAN OF CARE.
[2016-11-23 08:00] VITALS: BP 161/93
[2016-11-23] MEDS: NIFEdipine XL 60 MG TAB PO SCH (08:51)
[2016-11-23] MEDS: PANTOPRAZOLE 40 MG TABLET.DR PO SCH (08:51)
[2016-11-23] MEDS: predniSONE 20 MG TABLET PO SCH (08:52)
[2016-11-23] MEDS ORDERED: POTASSIUM CHLORIDE 20 MEQ TAB.PRT.SR PO ONE (12:30)
[2016-11-23] MEDS ORDERED: IV SET PRIMARY PUMP SET 1 EA INFUS.SET MC ONE (13:06)
[2016-11-23] MEDS ORDERED: IV NS 0.9% 250 ML IV ONE (13:07)
[2016-11-23] MEDS ORDERED: SECONDARY IV SET 1 EA INFUS.SET MC ONE (13:21)
[2016-11-23] MEDS: Magnesium 1GM/D5W 100ML PREMIX 100 ML IV SCH ×2 (13:30→17:19)
[2016-11-23 16:00] VITALS: BP 182/98
[2016-11-23] MEDS: LISINOPRIL (20MG) 20 MG TABLET PO SCH (17:19)
--- NOTE | 2016-11-23 19:55 | NUR ---
MS KARIS INITIAL NOTES RECEIVED REPORT FROM AM NURSE EPHRAIM PT SEEN ALMOST GOING IN TO THE ELEVATOR AND WANTS TO GO DOWN FOR SMOKE. SPOKE TO HER AND EXPLAINED TO HER THAT SHE CANT' GO DOWN WITHOUT TELLING THE NURSE AND NEEDS COMPANY HER FOR HER SAFETY. PT UNDERSTOOD WELL AND SHE SMILED AND STATES' 'OK'. PT BACK TO HER ROOM AND WAIT. NO SOB NOTED AT THIS TIME. AMBULATE WELL AND DENIES ANY PAIN OR ANY DISCOMFORT. WILL CONTINUE TO MONITOR.
[2016-11-23 20:00] VITALS: BP 154/81
--- NOTE | 2016-11-23 20:15 | NUR ---
MAGNETIC RESONANCE IMAGING COORDINATOR/NOTES PT WENT DOWN FOR SMOKE ACCOMPANIED BY CORY/LESLEY . NO SIGNS OF ANY ACUTE DISTRESS NOTED. WILL CONTINUE TO MONITOR. SMOKING CONSENT SIGNED .
[2016-11-23] MEDS: ENOXAPARIN SODIUM 40 MG/0.4 ML DISP.SYRIN SQ SCH (22:13)
--- NOTE | 2016-11-23 22:59 | NUR ---
CUT OFF SAW OPERATOR METAL/NOTES PT SLEEPING AT THIS TIME. BREATHING EVEN AND NON-LABORED, KEPT HER WARM AND COMFORTABLE AT ALL TIMES. WILL CONTINUE TO MONITOR. PLACE CALL LIGHT AT REACH.
[2016-11-24] MEDS: PANTOPRAZOLE 40 MG TABLET.DR PO SCH (06:39)
--- NOTE | 2016-11-24 06:47 | NUR ---
MS MAIL CLERK BILLS CLOSING NOTES PT WOKE UP AND STARTED WALKING AROUND AFTER PROTONIX GIVEN. STABLE ELZBIETA THE NIGHT AND SLEPT WELL. DUE MEDS GIVEN AND ALL NEEDS MET. NO SIGNS OF ANY ACUTE DISTRESS OR ANY SOB NOTED ELZBIETA THE NIGHT. KEPT HER WARM AND COMFORTABLE AT ALL TIMES. WILL ENDORSE TO AM NURSE FOR CONTINUITY OF CARE.
[2016-11-24 07:04] LABS: CALCIUM, SERUM 9.3 mg/dL (8.5-10.1); CREATININE 0.6 mg/dL (0.6-1.3); POTASSIUM 3.6 mmol/L (3.5-5.1)
--- NOTE | 2016-11-24 07:43 | NUR ---
MS RN NOTES RECEIVED REPORT WITH PATIENT A/OX4. NO SOB NOTED. NO S/S OF DISTRESS NOTED. PATIENT DENIES ANY PAIN AT THIS TIME. IV PATENT AND INTACT. BED IS IN LOWEST, LOCKED POSITION. CALL LIGHT IS WITHIN REACH. WILL CONTINUE TO MONITOR THROUGHOUT SHIFT.
[2016-11-24 08:00] VITALS: BP 180/108
[2016-11-24] MEDS: predniSONE 20 MG TABLET PO SCH (08:16)
[2016-11-24 08:17] VITALS: BP 180/108
[2016-11-24] MEDS: LISINOPRIL (20MG) 20 MG TABLET PO SCH (08:17)
[2016-11-24] MEDS: NIFEdipine XL 60 MG TAB PO SCH (08:17)
--- NOTE | 2016-11-24 09:59 | NUR ---
MS RN NOTES RECHECKED PATIENT BP AFTER MEDICATION ADMINISTRATION. BP AT 178/93. MD MADE AWARE. NO NEW ORDERS. WILL CONTINUE TO MONITOR.
[2016-11-24] MEDS ORDERED: FLUT1DIS3 INH (10:16)
[2016-11-24] MEDS ORDERED: LISI20TA61 PO (10:16)
[2016-11-24] MEDS ORDERED: PRED20TA PO (10:16)
[2016-11-24] MEDS ORDERED: CLON0.1T PO (10:16)
--- NOTE | 2016-11-24 12:15 | NUR ---
MS RN NOTES CALLED [facility] AND GAVE REPORT TO RENETTA SILVA REGARDING PATIENT.
--- NOTE | 2016-11-24 14:26 | NUR ---
MS RN NOTES PATIENT HAS BEEN DISCHARGED TO [facility] IN STABLE CONDITION. PATIENT WAS ESCORTED BY EMT. DISCHARGE PROTOCOL FOLLOWED. PATIENT'S SKIN WAS INTACT. IV WAS REMOVED. ID BAND REMOVED. DISCHARGE INSTRUCTIONS PROVIDED TO PATIENT TO FOLLOW UP WITH PCP IN 1 WEEK. DISCHARGE EDUCATION FORMS VERBALLY EXPLAINED TO PATIENT AND GIVEN TO PATIENT. MD IS AWARE OF ALL ABNORMAL LABS. MD IS AWARE OF PATIENT'S ABNORMAL VITAL SIGNS. ALL BELONGINGS HAVE BEEN ACCOUNTED FOR.
== END 2016-11-24 14:38 | DRG 189 ==
LOC: ER 14:20 → MED 16:47
PROVIDERS: ADMIT Internal Medicine; ATTEND Internal Medicine
DX: J96.01 Acute respiratory failure with hypoxia (principal); J44.1 Chronic obstructive pulmonary disease with (acute) exacerbation; E03.9 Hypothyroidism, unspecified; E87.6 Hypokalemia; E78.5 Hyperlipidemia, unspecified; E66.9 Obesity, unspecified; I10 Essential (primary) hypertension; F41.9 Anxiety disorder, unspecified; F32.9 Major depressive disorder, single episode, unspecified; Z59.0 Homelessness; F17.210 Nicotine dependence, cigarettes, uncomplicated; Z91.19 Patient's noncompliance with other medical treatment and regimen; Z99.81 Dependence on supplemental oxygen; Z68.24 Body mass index [BMI] 24.0-24.9, adult
CPT/HCPCS: 36415; 71010-TC; 80048-TC; 80061-TC; 80076-TC; 82962-TC; 83735-TC; 84100-TC; 84484-TC; 85025-TC; 87081-TC; 94799-TC; A4606; J1650; J2405; J2930; J3475; J7050; Q0162; Z7610